=== PATIENT | female | born 1950 ===

== ENCOUNTER 2024-10-28 10:10 | Outpatient (AMB) | payer MEDICARE, OTHER, SELFPAY ==
--- OUTSIDE RECORDS SUMMARY | 2024-10-28 11:05 | XMS_ITS | Clinical Summary ---
Author Organization [facility] Address [address] [place] [address] Phone Care Team Providers Care Engineering Psychologist Name Role Phone Kimmy Cummins DO Primary Car e Provider Allergies Active Allergy Reactions Criticality Noted Date Comments Erythromycin 01/13/2023 Medications amLODIPine (NORVASC) 2.5 MG tablet Take 1 tablet by mouth every morning. 10/28/2022 Active levothyroxine (SYNTHROID,LEVOT HROID) 25 MCG tablet Take 1 tablet by mouth daily. 11/11/2022 Active triamcinolone acetonide 0.1 % cream as needed. 10/17/2022 Active ezetimibe-simvas tatin (VYTORIN) 10-20 mg per tablet Take 1 tablet by mouth daily. 08/13/2021 Active Active Problems Problem Noted Date Diagnosed Date Hyperlipidemia 01/13/2023 01/13/2023 Hypothyroidism 01/13/2023 01/13/2023 Assessment & Plan (01/04/2024 5:15 PM EDT): Euthyroid on recent labs. Osteoporosis 01/13/2023 01/13/2023 Essential hypertension Age-related osteoporosis wit hout current pathological fracture Assessment & Plan (01/04/2024 5:17 PM EDT): 73 y.o. woman w/ osteoporosis w/ significantly low t-score/z-score in spine. She did have an early menopause w/o HRT. Getting in reasonable calcium given likely PHPT. Will call to see if bone density was repeated Assessment & Plan (01/13/2023 12:53 PM EDT): 72 y.o. woman w/ osteoporosis w/ significantly low t-score/z-score in spine. She did have an early menopause w/o HRT. Reviewed normal bone physiology across the lifespan. Reviewed role of adequate calcium, vitamin D, weight-bearing exercise & avoidance of falls along with pharmacologic rx. Provided with written literature from [employer]. Will repeat bone density in late February/March. Will obtain records & repeat blood work. Will address potential pharmacologic rx at follow up. Hypercalcemia Assessment & Plan (01/04/2024 5:25 PM EDT): Mildly high calcium with high/high normal (non-suppressed PTH), presumably due to primary hyperparathyroidism. Has been uninterested in completing work up with 24 hr urine or pursuing rx. Reviewed normal parathyroid hormone physiology. Reviewed ddx & evaluation. Reviewed rx options, including monitoring, surgery or cinacalcet if calcium significantly high & pt unable/unwilling to have surgery. Discussed indications for surgery. Her calcium is not in a range which would require surgery (although certainly her bone density is). Discussed that typically this is a stable condition (with some fluctuation in calcium levels related to hydration/technical issues w/ lab, etc) but can be progressive with a persistent increase in calcium over time. She is getting reasonable, does not sound like excessive intake of calcium. I have advised she hold the vitamin D as should be getting 1000 units in MVI. Would keep well hydrated & would monitor. Will continue to monitor with labs with PCP. Would include calcium, albumin & 25 vitamin D with next labs. Assessment & Plan (01/13/2023 12:55 PM EDT): 72 y.o. woman with high calcium, high PTH, presumably due to primary hyperparathyroidism. Reviewed normal parathyroid hormone physiology. Reviewed ddx & evaluation. Reviewed rx options, including monitoring or surgery with indications for surgery.Would favor she do a 24 hr urine to confirm the diagnosis of PHPT & determine if there are additional indications for surgery (other than bone density). She is reluctant to consider surgery or even to do a 24 hr urine test. Would prefer to repeat labs in short term. Encounters Date Type Department Care Team Description 09/11/2024 Telephone Severino Sterling [facility] [address] [place] [address] [place] [phone] Jie Villegas MA Labs from Last 3 Months Social History Tobacco Use Types Packs/Day Years Used Date Smoking Tobacco: Never Smokeless Tobacco: Never Tobacco Cessation:Counseling Given: Not Answered Alcohol Use Standard Drinks/Week Comments Not Currently 0 (1 standard drink = 0.6 oz pur e alcohol) Education Answer Date Recorded Are you interested in more education? Not on kemar e 08/05/2022 Are you concerned about learning? Not on file 08/05/2022 No 08/05/2022 No 08/05/2022 Digital Access Answer Date Recorded No 08/05/2022 No 08/05/2022 Reliable internet access at home? Not on file 08/05/2022 Device with a working camera? Not on file Comments Unknown Sex and Gender Information Value Date Recorded Sex Assigned at Not on file Legal Sex Female 1:54 PM EDT Gender Identity Not on file Sexual Orientation Not on file Last Filed Vital Signs Vital Sign Reading Time Taken Comments Blood Pressure 116/60 01/04/2024 11:12 AM EDT Pulse 80 01/04/2024 11:12 AM EDT Temperature - - Respiratory Rate - - Oxygen Saturation 93% 01/04/2024 11:12 AM EDT Inhaled Oxygen Concentration - - Weight 65.3 kg (144 lb) 01/04/2024 11:12 AM EDT Height 164.8 cm (5' 4.88 ) 01/04/2024 11:12 AM E DT Body Mass Index 24.05 01/04/2024 11:12 AM EDT Plan of Treatment Upcoming Encounters Date Type Department Care Team (Late st Contact Info) Description 01/03/2025 11:20 AM EDT Office Visit [facility] [address] [place] [address] [place] [address] Jadyn Haskins MD [address] [place] [phone] Health Maintenance Due Date Last Done Comments Adult Td,Tdap Booster 1950 LIPID PANEL 1950 DEPRESSION SCREENING 1960 HEPATITIS C SCREENING 1966 SMOKING STATUS SCREENING (On ce After 26 Yrs) 1974 COLOGUARD 1993 COLONOSCOPY 1993 COLORECTAL CANCER SCREENING 1993 FIT TEST 1993 FOBT 1993 SIGMOIDOSCOPY 1993 VIRTUAL COLONOSCOPY 1993 PNEUMOCOCCAL VACCINES (50+ y ears) (1 of 1 - PCV) 1998 ZOSTER VACCINES (1 of 2) 1998 RSV VACCINE (1 - 1-dose 75+ series) 10/27/2023 COVID-19 VACCINE ( - 2023-2 5 season) 2023 BLOOD PRESSURE 07/04/2024 01/04/2024 TSH LEVEL 11/29/2024 11/30/2023 OSTEOPOROSIS SCREENING INITI AL (ONE-TIME) Completed 01/13/2023 HEPATITIS A VACCINES Aged Out No long er eligible based on patient's age to complete this topic HIB VACCINES Aged Out No longer eligi ble based on patient's age to complete this topic MENINGOCOCCAL VACCINES (ACWY) Aged Out No longer eligible based on patient's age to complete this topic MENINGOCOCCAL VACCINES (B) Aged Out N o longer eligible based on patient's age to complete this topic Medical Devices Not on file Procedures Procedure Name Priority Date/Time Associated Diagnosis Comments TSH Routine 11/30/2023 11:40 AM EDT BD DXA MONITORING Routine 01/13/2023 1:22 PM EDT Hyperparathyroidism, unspecified Age-related osteoporosis without current pathological fracture from Last 3 Months or Most Recently Relevant to Health Maintenance Results * TSH (11/30/2023 11:40 AM EDT) us Historical Provider LAB BLOOD ORDERABLES Yolie l Result from Last 3 Months or Most Recently Relevant to Health Maintenance Insurance MEDICARE PART A & B MEDICARE SUPPLEMENT MEDICARE PART A & B MEDICARE SUPPLEMENT MEDICARE PART A & B Member Subscriber Plan / Payer (Ef fective 2013-Present) Name:Eve Hickman Member ID:[id number] Relation to Subscriber:Self Name:Eve Hickman Subscriber ID:[id number] Payer ID:[id number] Group ID:Not on file Type:Medicare Address: [facility] [facility] [address] MEDICARE SUPPLEMENT MEDICARE PART A & B MEDICARE SUPPLEMENT MEDICARE PART A & B MEDICARE SUPPLEMENT MEDICARE PART A & B [facility] MEDICARE SUPPLEMENT Care Teams Engineering Psychologist Relationship Specialty Start Date End Date Kimmy Cummins DO PCP - General Internal Medicine 01/13/23 Additional Source Comments The information contained in this document represents components of the legal health record. It is not the complete legal health record.[facility]
== END 2024-10-28 10:18 | disposition home or self-care (01) ==
LOC: HO.HMGAL 10:10
PROVIDERS: Visit Provider Registered Nurse Emergency
DX: J30.89 Other allergic rhinitis (principal)
CPT/HCPCS: 95117; 95165

== ENCOUNTER 2024-11-25 09:32 | Outpatient (AMB) | payer MEDICARE, OTHER, SELFPAY ==
--- OUTSIDE RECORDS SUMMARY | 2024-11-25 11:29 | XMS_ITS | Clinical Summary ---
Author Organization [facility] Address [address] [facility] [address] [place] [address] Phone Care Team Providers Care Song Lyricist Name Role Phone Kimmy Cummins DO Primary [...] Department Care Team Description 09/11/2024 Telephone [facility] [address] [place] [address] [place] [phone] Jie Villegas MA Labs from Last 3 [...] 11:20 AM EDT Office Visit [facility] [address] [place] [address] [place] [address] Jadyn Haskins MD [address] [place] [email or web address] Health Maintenance Due Date Last Done Comments Adult Td,Tdap Booster 1948 LIPID PANEL 1948 DEPRESSION SCREENING 1960 HEPATITIS C SCREENING 1966 SMOKING STATUS SCREENING (On ce After 26 Yrs) 1974 PNEUMOCOCCAL VACCINES (50+ y ears) (1 of 1 - PCV) 1998 ZOSTER VACCINES (1 of 2) 1998 RSV VACCINE (1 - 1-dose 75+ series) 10/27/2023 BLOOD PRESSURE 07/04/2024 01/04/2024 INFLUENZA VACCINE (#1) 2024 COVID-19 VACCINE (1 - 2023-2 5 season) 2024 TSH LEVEL 11/29/2024 11/30/2023 OSTEOPOROSIS SCREENING INITI [...] Results * TSH (11/30/2023 11:40 AM EDT) Historical Provider LAB BLOOD ORDERABLES Yolie l Result from Last 3 Months or Most Recently Relevant to Health Maintenance Insurance MEDICARE PART A & B MEDICARE SUPPLEMENT MEDICARE PART A & B MEDICARE SUPPLEMENT MEDICARE PART A & B MEDICARE SUPPLEMENT MEDICARE PART A & B MEDICARE SUPPLEMENT MEDICARE PART A & B MEDICARE SUPPLEMENT MEDICARE PART A & B MEDICARE SUPPLEMENT Care Teams Song Lyricist Relationship Specialty Start Date End Date Kimmy Cummins DO PCP - General Internal Medicine 01/13/23 Additional Source Comments The information contained in this document represents components of the legal health record. It is not the complete legal health record.[facility]
--- OUTSIDE RECORDS SUMMARY | 2024-11-25 11:29 | XMS_ITS | Clinical Summary ---
Author Organization [facility] [address] [facility] Address [address] [place] [address] Phone Care Team Providers Care Senior Director Marketing Name Role Phone AbiodunkimberlyjeanKimmy Primary Care Pro vider Encounters Date Type Department Care Team Description 10/29/2024 Telephone Gastroenterology - [address] [facility] 299 [facility] [address] [place] [phone] Marjorie Ojeda MD from Last 3 Months Social History Tobacco Use Types Packs/Day Years Used Date Smoking Tobacco: Never Assessed Comments Unknown Sex and Gender Information Value Date Recorded Sex Assigned at Not on file Legal Sex Female 10:51 PM EST Gender Identity Not on file Sexual Orientation Not on file Plan of Treatment Upcoming Encounters Date Type Department Care Team (Late st Contact Info) Description 02/11/2025 2:20 PM EST Consult Gastroenterology - [place] [address] [facility] [address] [place] [phone] Carmel Cason PA 175 [facility] [address] [place] [address] Health Maintenance Due Date Last Done Comments DTaP,Tdap,and Td Vaccines (1 - Tdap) 10/27/1969 Pneumococcal Vaccine: 50+ Ye ars (1 of 1 - PCV) 1998 Zoster Vaccines (1 of 2) 1998 RSV Immunization Adult Patie nts (1 - 1-dose 75+ series) 10/27/2023 Depression Screening 03/13/2024 Falls Risk Assessment 10/29/2024 Hepatitis C Screening 10/29/2024 Medicare Annual Wellness Visit 10/29/2024 Osteoporosis Screening (Bone Density Screening) 10/29/2024 Social Influencers of Health Screening 10/29/2024 COVID-19 Vaccine ( - 2023-2 5 season) 2024 Influenza Vaccine (#1) 2024 HIB Vaccines Aged Out No longer eligi ble based on patient's age to complete this topic HPV Vaccines Aged Out No longer eligi ble based on patient's age to complete this topic Hepatitis A Vaccines Aged Out No long er eligible based on patient's age to complete this topic Hepatitis B Vaccines Aged Out No long er eligible based on patient's age to complete this topic IPV Vaccines Aged Out No longer eligi ble based on patient's age to complete this topic MMR Vaccines Aged Out No longer eligi ble based on patient's age to complete this topic Meningococcal ACWY Vaccine Aged Out N o longer eligible based on patient's age to complete this topic Meningococcal B Vaccine Aged Out No l onger eligible based on patient's age to complete this topic RSV Immunization Patients Un diomedes 20 months Aged Out No longer eligible b ased on patient's age to complete this topic Varicella Vaccines Aged Out No longer eligible based on patient's age to complete this topic Insurance MEDICARE [facility] Care Teams Senior Director Marketing Relationship Specialty Start Date End Date Kimmy Cummins DO [facility] [address] [place] [phone] PCP - General Internal Medicine 10/29/24
== END 2024-11-25 10:00 | disposition home or self-care (01) ==
LOC: HO.HMGAL 09:32
PROVIDERS: Visit Provider Registered Nurse Emergency
DX: J30.89 Other allergic rhinitis (principal)
CPT/HCPCS: 95117; 95165

== ENCOUNTER 2024-12-25 09:08 | Outpatient (AMB) | payer MEDICARE, OTHER, SELFPAY ==
--- OUTSIDE RECORDS SUMMARY | 2024-07-29 09:41 | XMS_ITS ---
Author Organization [facility] Address [address] [place], [place] [id number] Care Team Providers Care V Belt Skiver Name Role Phone AWA GIL Primary Care Provide r [phone] REASON FOR VISIT AWV Cancelled Encounters Encounter Location Date Provider Diagnosis [facility] [address] [place] [address] 07/29/2024 AWA GIL PLAN OF TREATMENT Next Appt Details Provider Name:AWA POST, 05/05/2025 10:00:00 AM, [address] [place], [address],
--- OUTSIDE RECORDS SUMMARY | 2024-08-08 05:30 | XMS_ITS ---
Author Organization [facility] Address [address] [place], [place] [id number] Care Team Providers Care Meat Soaker Name Role Phone AWA GIL Primary Care Provide r [phone] [place], NURSING [facility] [phone] REASON FOR VISIT N/39/AWV Encounters Encounter Location Date Provider Diagnosis [address] [address] 08/08/2024 NURSING [place] PLAN OF TREATMENT Next Appt Details Provider Name:AWA POST, 05/05/2025 10:00:00 AM, [address] [place], [address],
--- OUTSIDE RECORDS SUMMARY | 2024-08-08 06:00 | XMS_ITS ---
Author Organization [facility] Address [address] [place], [place] [phone] Care Team Providers Care Discharge Planner Name Role Phone AWA GIL Primary Care Provide r [phone] REASON FOR VISIT 39/1 yr follow up (AWV w/nursing 1st) Encounters Encounter Location Date Provider Diagnosis [facility] [address] [place] [address] 08/08/2024 AWA GIL PLAN OF TREATMENT Next Appt Details Provider Name:AWA POST, 05/05/2025 10:00:00 AM, [address] [place], [address],
--- OUTSIDE RECORDS SUMMARY | 2024-09-27 06:58 | XMS_ITS ---
Author Organization [facility] Address [address] [place], [place] [id number] Care Team Providers Care Bar Hostess Name Role Phone AWA GIL Primary Care Provide r [phone] REASON FOR VISIT meclizine MEDICATIONS Medication SIG (Take, Route, Fr equency, Duration) Notes Start Date End Date Status Meclizine HCl 25 MG 1 tablet as needed f or vertigo Orally daily PRN for 30 days Act michelle Encounters Encounter Location Date Provider Diagnosis [address] [address] 09/27/2024 AWA GIL PLAN OF TREATMENT Medication Medication Name Sig Start Date Stop Date Notes Meclizine HCl 25 MG 1 tablet as needed f or vertigo Orally daily PRN for 30 days Next Appt Details Provider Name:AWA POST, 05/05/2025 10:00:00 AM, [address] [place] [address], [phone],
--- OUTSIDE RECORDS SUMMARY | 2024-11-01 05:30 | XMS_ITS ---
Author Organization [facility] Address [address], [place] [id number] Care Team Providers Care Qa Consultant Name Role Phone AWA GIL Primary Care Provide r [phone] ALLERGIES Allergen (clinical drug ingredient) Drug/Non Drug Allergy documented on EMR Reaction Allergy Type Onset Date Status erythromycin Erythromycin Unknown Drug Allergy A ctive REASON FOR REFERRAL Reason (faxed 11/03/24) ? of median arcuate ligament on CT/coronary Diagnosis 1 Abnormal abdominal C T scan (R93.5) Referral Organization [facility] Referring Provider First Name AWA Referring Provider Last Name RENEE ROWE Referring Provider Speciality Internal M edicine Referred Provider JW PEREZ Referred Provider Specialty Vascular Sahil mary ellen General Notes Neeta GRUBER [place] 10/12 12:26:01 PM > faxed to Dr Perez's office, f: [phone] Referral Priority Routine REASON FOR VISIT 39/ AVW MEDICATIONS Medication SIG (Take, Route, Frequency, Duration) Notes Start Date End Date Status Advil 200 MG 1 tablet with food or milk as needed Orally only w bad REARDON Active Tylenol 8 Hour 650 MG 2 tablets as neede d Orally every 8 hrs PRN Active Meclizine HCl 25 MG 1 tablet as needed for vertigo Orally daily PRN for 30 days Active traZODone HCl 50 MG 1 tablet at bedtime as needed Orally Once a day for 30 days Active Levothyroxine Sodium 25 MCG TAKE 1 TABLET BY MOUTH EVERY DAY IN THE MORNING ON EMPTY STOMACH FOR 90 DAYS for 90 needs ov and labs for refills Active amLODIPine Besylate 2.5 MG 1 tablet Orally Once a day at night for 90 days Active Ezetimibe-Simvastatin 10-20 MG TAKE 1 TABLET BY MOUTH EVERY DAY for 90 Active SOCIAL HISTORY Tobacco Use: Social History Observation Description Date Details (start date - stop date) Never Smoker NA - NA Sex Assigned At : Social History Observation Description Sex Assigned At Unknown Smoking Question Answer Notes Are you a: never smoker Alcohol Screen Question Answer Notes Did you have a drink containing alcohol in the p ast year? No Points 0 Interpretation Negative Section Notes: Last Pap: Dr. Moreno - ?2019- normal Last Mammo:2019 - normal - [address] Last Colonscopy: 2020- normal - 5y plan - [facility] PROBLEMS Problem Type ICD Code Onset Dates Problem Status W/U Status Risk SNOMED Code Notes Problem Vaginal atrophy (N95.2) Active confirmed 838958872 VITAL SIGNS Height 63.5 in 11/01/2024 Weight 141 lbs 11/01/2024 Blood pressure systolic 137 mm Hg 11/02/19 25 Blood pressure diastolic 76 mm Hg 025 BMI 24.58 kg/m2 11/01/2024 Encounters Encounter Location Date Provider Diagnosis [facility] [address] [place] [address] 5 AWA GIL Hyperparathyroidism E21.3 ; Hypothyroidism, unspecified type E03.9 ; Primary hypertension I10 ; Insomnia, unspecified type G47.00 ; Microhematuria R31.29 ; MESSER (dyspnea on exertion) R06.09 ; Abnormal abdominal CT scan R93.5 ; Vaginal atrophy N95.2 ; Family history of colon cancer Z80.0 ; History of vertigo Z87.898 ; High cholesterol E78.00 and Medicare annual wellness visit, subsequent Z00.00 ASSESSMENTS Encounter Date Diagnosis Assessment Notes Treatment Notes Treatment Clinical Notes Section Notes 11/01/2024 Hyperparathyroidism (ICD-10 - E21.3) Will continue to monitor labs as per HPI. 11/01/2024 Hypothyroidism, unspecified type (ICD-10 - E03.9) TSH is good on current medication regimen. Taking meds correctly. Will continue to monitor TSH. 11/01/2024 Primary hypertension (ICD-10 - I10) Tolerating current regimen well and will continue. 11/01/2024 Insomnia, unspecifie d type (ICD-10 - G47.00) Finds trazodone to be helpful although does not completely resolve her symptoms. Will continue. Is tolerating without any side effects. 11/01/2024 Microhematuria (ICD- 10 - R31.29) had been ref to uro but declined appt wanted to fu w/ education director for vaginal atrophy first Will continue to monitor UA. 11/01/2024 MESSER (dyspnea on exertion) (ICD-10 - R06.09) [facility] card [facility] ct was ok for cardiac disease no need for fu w/ cards 11/01/2024 Abnormal abdominal C T scan (ICD-10 - R93.5) On her recent coronary CT incidentally noted in the upper abdomen to have the following findings: The origin of the celiac artery small and tortuous. Distal to this there is dilatation of the celiac artery. 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 Does not have any of the typical symptoms. Suspect this may be an over read have referred to vascular for evaluation and patient is aware. 11/01/2024 Vaginal atrophy (ICD-10 - N95.2) Continue follow-up and treatment as directed by MOTEL OPERATOR. 11/01/2024 Family history of colon cancer (ICD-10 - Z80.0) Up-to-date with screening and will follow-up with GI as directed 11/01/2024 History of vertigo (ICD-10 - Z87.898) if recurs or lasts more than 2 days will snd to vestibular rehabPatient is aware and agreeable. 11/01/2024 High cholesterol (ICD-10 - E78.00) Continue current medication regimen. Lipid profile is good. Continue meds and heart healthy diet and will monitor fasting lipids. 11/01/2024 Medicare annual wellness visit, subsequent (ICD-10 - Z00.00) 11/01/2024 Other Health Risk Assessment reviewed with patient and scanned into chart. PLAN OF TREATMENT Medication Medication Name Sig Start Date Stop Date Notes Meclizine HCl 25 MG 1 tablet as needed f or vertigo Orally daily PRN for 30 days traZODone HCl 50 MG 1 tablet at bedtime as needed Orally Once a day for 30 days Treatment Notes Assessment Notes Hyperparathyroidism Will continue to mon itor labs as per HPI. Hypothyroidism, unspecified type TSH is good on current medication regimen. Taking meds correctly. Will continue to monitor TSH. Primary hypertension Tolerating current regimen well and will continue. Insomnia, unspecified type Finds trazodo ne to be helpful although does not completely resolve her symptoms. Will continue. Is tolerating without any side effects. Microhematuria had been ref to uro but declined appt wanted to fu w/ education director for vaginal atrophy first Will continue to monitor UA. MESSER (dyspnea on exertion) had been ref t [facility] card coronary ct was ok for cardiac disease no need for fu w/ cards Abnormal abdominal CT scan On her recent coronary CT incidentally noted in the upper abdomen to have the following findings: The origin of the celiac artery small and tortuous. Distal to this there is dilatation of the celiac artery. 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 Does not have any of the typical symptoms. Suspect this may be an over read have referred to vascular for evaluation and patient is aware. Vaginal atrophy Continue follow-up a nd treatment as directed by MOTEL OPERATOR. Family history of colon cancer Up-to-sd e with screening and will follow-up with GI as directed History of vertigo if recurs or lasts m ore than 2 days will snd to vestibular rehabPatient is aware and agreeable. High cholesterol Continue current med ication regimen. Lipid profile is good. Continue meds and heart healthy diet and will monitor fasting lipids. Future Test Test Name Order Date Urinalysis, Complete w/ME-[id number] 025 TSH-[id number] 02/13/2025 Calcium, Ionized, Serum-[id number] 5 PTH, Intact-[id number] 02/13/2025 Hepatic Function Panel [id number] LP+Non-HDL Cholesterol-[id number] 02/13/2025 BMP8+eGFR-[id number] 02/13/2025 Referrals Referral Date Details (faxed 11/03/24) ? of median arcuate ligament on CT/coronary , JW PEREZ Next Appt Details Follow Up: 6 Months w/ labs, Reason: Provider Name:AWA POST, 05/05/2025 10:00:00 AM, [address] [place], [address], Progress Notes * Examination Category Sub-Category Detail Notes Category Not es General Examination see abov e History and Physical Notes * HPI (History of Present Illness) Category Sub-Category Detail Notes Category Not es General Pt Is here today for a follow-up visit and awv . here with her Following is copied/reviewed/edited from previous: -Medical history significant for elevated cholesterol, low vitamin D, high blood pressure, history of migraines, osteoporosis, 11/2023 apc prob visit For racing heart, shortness of breath. Had EKG in office, labs ordered, nuclear stress test was ordered and she was referred to cardiology for evaluation. had appt w/ Dr. [facility] , She did have Appointment with them in July of this year (2024). Prior to visit her nuclear stress test have been equivocal. They recommended evaluation of coronary CT scan if unremarkable then would not need further follow-up with cardiology. Coronary CT scan was done in August 2024. No evidence of hemodynamically significant coronary disease. has difficulty fallng and staying asleep this has been an issue for many years. no anxiety or depression -for her history of headaches has seen neuro at [facility] for second opinion. Currently gets chronic tension headaches with occasional migraines. When she saw them for follow-up on 08/2021 she had been having on average 2 of the really bad migraines monthly. They have given her steroids which she did find to be helpful. Had an awful time breaking out of a pattern of headaches until she was prescribed a medrol dose pack which cleared them up for months. Hadtryed various meds in past including amitriptyline, butalpital, tylenol, asa etc. told to have sleep study but refuses but wouldnt wear the mask. has refused the botox injections they offered due to potential SE she read about. prior to severe migraines gets freq BMS. They felt that she has too many cardiac risk factors to allow for triptan therapy. They had discussed low-dose Topamax 25 mg nightly however she declined a prophylactic medication per patient. -she reports that headaches have been better w/ improved bp control -had past hosp at [facility] 08/14/2021 for covid and syncope. They had also noted a mild systolic murmur and recommended she have outpatient evaluation for this with echocardiogram when she followed with her PCP. -on echo she was noted to have tricuspid regur and mild ot mod pulm vavle regurg -has meclizine at home for occ vertigo tells me this is infreq ent dr isaac , retired , now getting allergy shots at [facility] but they're trying to get an ent doctor there dr cm education director retired. still fu at the practice for atrophic vaginitis . -Follows with Dr Wang. gets injections for shoulders prn. Left shoulder partial rotator cuff tear. 01/14/22 had surgery for rotator cuff tear. -she goes for b/l knee injections at [facility] prn Colonoscopy (dbl endoscopy)-Dr Ojeda 01/2020-5 year rpt 01/2016 Oqzmov32 12/25 [facility] seen by azeem lopez for osteoporosos and elevated calcium and parathyroid hormone. They did recommend further evaluation for the hyperparathyroidism as this may be related to her osteoporosis and need for surgical excision of the parathyroids however she had wanted to put this off and cont to monitor labs had prev had micro hematuria. she denies h/o kidney stones has had micro hematuria on labs.had declined ref to urology for now recent labs reviewed w/ patient today : Your recent labs show: Normal urine test, Cholesterol panel is good Thyroid function is good, Normal: Fasting glucose, electrolytes, kidney function, liver function Calcium is slightly elevated above normal as previous (we had discussed you following up with endocrinology, Dr. Haskins for this. ) ROS GENERAL: No malaise, significant weight loss or fever HEENT: No changes in vision or hearing. No sore throat. No neck pain. No lumps or masses noted in neck. RESPIRATORY: No cough, wheezing or shortness of breath CARDIOVASCULAR: No chest pain, leg swelling or palpitations GI: No abdominal discomfort, blood in stools or black stools : No incontinence. No dysuria. No gross hematuria. No nocturia. MUSCULOSKELETAL: see hpi SKIN: No lesions, rash or itching PSYCH: No mood disorder or recent psychosocial stressors. see hpi ENDOCRINE: No cold or heat intolerance, polyuria, polydipsia or goiter. HEME/LYMPH: No easy bruising or bleeding. No lymph node enlargement or tenderness. NEURO: No persistent headache, syncope, seizures, weakness or numbness PE APPEARANCE: Alert and in no acute distress HEENT: NCAT, EOMI, nl conjunctiva. external ears normal. TMs nl b/l , no sinus tenderness, Neck is supple. No palpable lymphadenopathy. No thyromegaly. MMM. HEART: RRR with normal S1 and S2 LUNG: clear to auscultation ABDOMEN: Bowel sounds normoactive, soft, non-tender, nondistended, no palp masses BACK: No pain to palpation , no midline tenderness EXTREMITIES: Extremities warm and without edema NEURO: Awake, alert and oriented x 3 , gait normal, 5/5 strength prox and distal x 4 SKIN: Skin color, texture, turgor normal. Advanced directives Resuscitation status The following routine items were reviewed during the patient's annual well visit: Screening for tobacco use (tobacco control) Screening for alcohol abuse/misuse (Audit C) PHQ2 and PHQ9 if applicable MOLST Form given Fall Risk Mini [facility] Healthy care proxy (see Medical History) Healthcare Proxy See Medical history for emergency contact and or HCP Depression Screening PHQ-9 Little inte rest or pleasure in doing things: Not at all Feeling down,depressed or hopeless: Not at all Trouble falling or staying a sleep, or sleeping too much: More than half the days Feeling tired or having little energy: N ot at all Poor appetite or overeating: Not at all Feeling bad about yourself o r that you are a failure or have let yourself or your family down: Not at all Trouble concentrating on thi ngs, such as reading the newspaper or watching television: Not at all Moving or speaking so slowly that other people could have notice. Or the opposite of being so fidgety or restless that you have been moving around a lost more that usual: Not at all Thoughts that you would be b murtaza off , or of hurting yourself in some way: Not at all Total Score: 2 Interpretation: Minimal Depression Consultation Request Notes Referral Date Referring Provider Referred Provider Not ansuha 11/01/2024 AWA GIL MARC (faxed 11/03/24) ? of median arcuate ligament on CT/coronary
--- OUTSIDE RECORDS SUMMARY | 2024-12-25 10:00 | XMS_ITS | Clinical Summary ---
Author Organization [facility] Address [address] [place] [address] Phone Care Team Providers Care Mannequin Coloring Artist Name Role Phone AbiodunkimberlyjeanKimmy Primary Care Pro vider Encounters Date Type Department Care Team Description 10/29/2024 Telephone Gastroenterology - [facility] 299 [facility] [address] [place] [phone] Marjorie Ojeda MD from Last 3 Months [...] 02/11/2025 2:20 PM EST Consult Gastroenterology - [place] [address] [facility] [address] [place] [phone] Carmel Cason PA 175 [facility] [address] [place] [address] Health Maintenance Due Date Last Done Comments [...] age to complete this topic Insurance MEDICARE [facility] Care Teams Mannequin Coloring Artist Relationship Specialty Start Date End Date Kimmy Cummins DO [facility] [address] [place] [phone] PCP - General Internal Medicine 10/29/24
--- OUTSIDE RECORDS SUMMARY | 2024-12-25 10:01 | XMS_ITS | Patient Health Record ---
Author Organization [facility] [employer] Address [address] [place], [place] [address] Care Team Providers Care Surgical Supervisor Name Role Phone AWA GIL Primary Care Provide r [phone] SELBY, [facility] [phone] ALLERGIES Allergen (clinical drug ingredient) Drug/Non Drug Allergy documented on EMR Reaction Allergy Type Onset Date Status erythromycin Erythromycin Unknown Drug Allergy A ctive REASON FOR REFERRAL Reason 10/23/24 w appt 5 ye ar colonoscopy and EGD z12.11 Referral Organization [facility] [employer] Referring Provider First Name AWA Referring Provider Last Name RENEE ROWE Referring Provider Speciality Internal M edicine Referred Provider VILMA FRAGA Referred Provider Specialty Gastroentero logjohann General Notes Pat GRUBER Call Ce nter 10/23/2024 09:10:31 AM >Pt asking for a colonoscopy and EGD to check for strictures, [facility], phone [phone], fax unknown, insurance (C), appt. will be booked after referral sent., Maria D GRUBER Admin 10/23/2024 01:35:18 PM > Faxed medical referral, last office note and most recent labs to [phone] (needs 5 year colonoscopy and EGD) Referral Priority Routine Reason (faxed 11/03/24) ? of median arcuate ligament on CT/coronary Diagnosis 1 Abnormal abdominal C T scan (R93.5) Referral Organization [facility] [employer] Referring Provider First Name AWA Referring Provider Last Name RENEE ROWE Referring Provider Speciality Internal M edicine Referred Provider JW THOMAS Referred Provider Specialty Vascular Sahil mary ellen General Notes Neeta GRUBER [place] 10/12 12:26:01 PM > faxed to Dr Thomas's office, f: [phone] Referral Priority Routine MEDICATIONS Medication SIG (Take, Route, Frequency, Duration) Notes Start Date End Date Status Levothyroxine Sodium 25 MCG TAKE 1 TAB B Y MOUTH EVERY DAY IN THE MORNING ON EMPTY STOMACH (*NEED OFFICE VISIT/LABS FOR REFILLS*) for 90 Active Advil 200 MG 1 tablet with food o r milk as needed Orally only w bad REARDON Active Tylenol 8 Hour 650 MG 2 tablets as neede d Orally every 8 hrs PRN Active Meclizine HCl 25 MG 1 tablet as needed f or vertigo Orally daily PRN for 30 days Active traZODone HCl 50 MG 1 tablet at bedtime as needed Orally Once a day for 30 days Active amLODIPine Besylate 2.5 MG TAKE 1 TABLET BY MOUTH EVERY DAY AT NIGHT for 90 Active Ezetimibe-Simvastatin 10-20 MG TAKE 1 TABLET BY MOUTH EVERY DAY for 90 Active IMMUNIZATIONS Vaccine Route Administration Date Status Comme nts [id number] IM Intramuscular 08/03/2023 Administered Pneumococcal, PPV 23 IM Intramuscular 01/12/2016 Administe red Pneumococcal Prevnar 13 IM Intramuscular 12/11/2014 Admini stered Pfizer COVID-19,mRNA, LNP-S, PF, 30mcg/0.3mL dose IM Intramuscular 12/06/2022 Administered Influenza, Fluzone HD 65+ IM Intramuscular 12/09/2020 Admi nistered Influenza, Fluarix Quad IM Intramuscular 12/04/2022 Admini stered SOCIAL HISTORY Tobacco Use: Social History Observation [...] Section Notes: Last Pap: Dr. Moreno - ?2018- normal Last Mammo:2018 - normal - [address] Last Colonscopy: 2020- normal - 5y plan - [facility] Last Pap: Dr. Moreno - ?2018- normal Last Mammo:2019 - normal - [address] Last Colonscopy: 2020- normal - 5y plan - [facility] Last Pap: Dr. Moreno - ?2019- normal Last Mammo:2019 - normal - [address] Last Colonscopy: 2020- normal - 5y plan - [facility] Last Pap: Dr. Moreno - ?2018- normal Last Mammo:2019 - normal - [address] Last Colonscopy: 2020- normal - 5y plan - [facility] Last Pap: Dr. Moreno - ?2018- normal Last Mammo:2019 - normal - [address] Last Colonscopy: 2020- normal - 5y plan - [facility] Last Pap: Dr. Moreno - ?2018- normal Last Mammo:2019 - normal - [address] Last Colonscopy: 2020- normal - 5y plan - [facility] Last Pap: Dr. Moreno - ?2018- normal Last Mammo:2018 - normal - [address] Last Colonscopy: 2020- normal - 5y plan - [facility] Last Pap: Dr. Moreno - ?2018- normal Last Mammo:2019 - normal - [address] Last Colonscopy: 2020- normal - 5y plan - [facility] Last Pap: Dr. Moreno - ?2018- normal Last Mammo:2019 - normal - [address] Last Colonscopy: 2020- normal - 5y plan - [facility] Last Pap: Dr. Moreno - ?2018- normal Last Mammo:2018 - normal - [address] Last Colonscopy: 2020- normal - 5y plan - [facility] PROBLEMS Problem Type ICD Code Onset Dates Problem Status W/U Status Risk SNOMED Code Notes Problem Osteoporosis (M81.0) Active confirmed O steoporosis (85489306) Problem Hypercalcemia (E83.52) Active confirmed 81753619 Problem Other chronic pain (G89.29) Active confirmed 01135252 Problem Migraine without status migrainosus, not intractable, unspecified migraine type (G43.909) Active confirmed 82899062 Problem Macrocytosis (D75.89) Active confirmed 267176175 Problem Hyperparathyroidism (E21.3) Active confirmed 36597188 Problem Insomnia, unspecifie d type (G47.00) Active confirmed 193558784 Problem Serum calcium elevat ed (E83.52) Active confirmed 56214543 Problem Low vitamin D level (E55.9) Active confirmed Vitamin D deficiency (60778094) Problem Vaginal atrophy (N95.2) Active confirmed 741511672 Problem Primary hypertension (I10) Active confirmed 32226833 Problem Hypothyroidism, unspecified type (E03.9) Active confirmed 38231073 Problem Microhematuria (R31.29) Active confirmed 101226088 Problem High cholesterol (E78.00) Active confirmed 67437564 Problem Elevated lipids (E78.5) Active confirmed Elevated fasting lipid profile (250772269930) Problem Headache, unspecifie d (R51.9) Active confirmed 09547638 VITAL SIGNS Blood pressure diastolic 76 mm Hg 11/01/2024 Height 63.5 in 11/01/2024 Blood pressure systolic 137 mm Hg 11/01/2024 Weight 141 lbs 11/01/2024 BMI 24.58 kg/m2 11/01/2024 Encounters Encounter Location Date Provider Diagnosis [place] [id number] 4 AWA GIL [place] [phone] 4 NURSING SELBY BP check Z01.30 [place] [id number] 4 [place] [id number] 4 AWA GIL [place] [id number] 4 AWA GIL [place] [id number] 4 AWA GIL Hyperparathyroidism E21.3 ; High cholesterol E78.00 ; Osteoporosis M81.0 ; Primary hypertension I10 ; Hypothyroidism, unspecified type E03.9 ; Insomnia, unspecified type G47.00 ; Headache, unspecified R51.9 ; Microhematuria R31.29 ; Pain in left knee M25.562 and Pain in right knee M25.[address] [address] [address] [address] 5 [facility]WA [facility] [address] [place] [address] 5 [facility]WA [facility] [address] [place] [address] 5 AWA LAUREENKITBJORN [address] [address] 5 AWA ROS[address]AT[address] [place] [address] [address] [place] [address] 5 AWA [address] [address] 5 AWA R[address] [address] 5 AWA DESDANIASHEBAKATINABJORN Hyperparathyroidism E21.3 ; Hypothyroidism, unspecified type E03.9 [...] continue to monitor labs as per HPI. 03/11/2024 Hyperparathyroidism (ICD-10 - E21.3) fu w/ endocrine as planned 12/28/2023 BP check (ICD-10 - Z01.30) Pt states within the last month, bp readings at home are averaging about 120/70. She has missed 4 days of bp medication within this past month due to personal life. Bp taken at home daily, no adverse effects from current medication. Please see telephone encounter for providers collaboration. 03/11/2024 High cholesterol (ICD-10 - E78.00) cont current regimen and heart healthy diet and will monitor fasting lipids 11/01/2024 Hypothyroidism, unspecified type (ICD-10 - E03.9) TSH is good on current medication regimen. Taking meds correctly. Will continue to monitor TSH. 03/11/2024 Osteoporosis (ICD-10 - M81.0) cont fu and tx as planned w/ endo 11/01/2024 Primary hypertension (ICD-10 - I10) Tolerating current regimen well and will continue. 03/11/2024 Primary hypertension (ICD-10 - I10) cont current med regimen and low sodium diet and will monitor 11/01/2024 Insomnia, unspecifie d type (ICD-10 - G47.00) Finds trazodone to be helpful although does not completely resolve her symptoms. Will continue. Is tolerating without any side effects. 11/01/2024 Microhematuria (ICD- 10 - R31.29) had been ref to uro but declined appt wanted to fu w/ director of product development for vaginal atrophy first Will continue to monitor UA. 03/11/2024 Hypothyroidism, unspecified type (ICD-10 - E03.9) cont current dose of meds and will monitor tsh 11/01/2024 MESSER (dyspnea on exertion) (ICD-10 - R06.09) [facility] ref [facility] card [facility] ct was ok for cardiac disease no need for fu w/ cards 03/11/2024 Insomnia, unspecifie d type (ICD-10 - G47.00) has bouts of insomnia when can't fall asleep for a couple of weeks . has tried otc sleep agents includig melatonin w/o any improvement. tries to sleep 9 pm to 6 am. gets up to urinate 2-3 times/night. she hasnt slep straight thru in many years in distant past took lorazepam wasnt great. 11/01/2024 Abnormal abdominal C T scan (ICD-10 [...] vascular for evaluation and patient is aware. 03/11/2024 Headache, unspecifie d (ICD-10 - R51.9) has been doing well, no exacerbations 03/11/2024 Microhematuria (ICD- 10 - R31.29) will monitor rept labs and if persists will refer to urology 11/01/2024 Vaginal atrophy (ICD-10 - N95.2) Continue follow-up and treatment as directed by SENIOR PENSIONS ADMINISTRATOR. 03/11/2024 Pain in left knee (ICD-10 - M25.562) fu w/ neos for injections prn 11/01/2024 Family history of colon cancer (ICD-10 - Z80.0) Up-to-date with screening and will follow-up with GI as directed 03/11/2024 Pain in right knee (ICD-10 - M25.561) 11/01/2024 History of vertigo (ICD-10 - Z87.898) [...] reviewed with patient and scanned into chart. 12/28/2023 Other PLAN OF TREATMENT Future Test Test Name Order Date LIPID PANEL 06/03/2022 BASIC METABOLIC PANEL 06/03/2022 HEPATIC FUNCTION PANEL 06/03/2022 25OH VITAMIN D 06/03/2022 IONIZED CALCIUM 06/03/2022 PTH INTACT 06/03/2022 TSH 06/03/2022 URINALYSIS MICROSCOPIC ONLY 06/03/2022 LIPID PANEL 11/11/2022 BASIC METABOLIC PANEL 11/11/2022 HEPATIC FUNCTION PANEL 11/11/2022 25OH VITAMIN D 11/11/2022 CBC (COMPLETE BLOOD COUNT) WITH DIFF 03/2022 FOLIC ACID 11/11/2022 IONIZED CALCIUM 11/11/2022 PTH INTACT 11/11/2022 TSH 11/11/2022 URINALYSIS MICROSCOPIC ONLY 11/11/2022 VITAMIN B12 11/11/2022 Urinalysis, Complete w/ME-[id number] 025 TSH-[id number] 02/13/2025 Calcium, Ionized, Serum-697106 5 PTH, Intact-923772 02/13/2025 Hepatic Function Panel [id number] LP+Non-HDL Cholesterol-462894 02/13/2025 BMP8+eGFR-[id number] 02/13/2025 Next Appt Details Provider Name:AWA LUCAS SINCERE, 05/05/2025 10:00:00 AM, [address] [place], [address], Insurance Providers Payer Name Payer Address Payer Phone Subscriber Number Group Number Insured Name Patient Relationship to Insured Coverage Start Date Coverage End Date MEDICARE [employer] [address] [facility] [place] [address] [phone] [id number] SONY HURTADO Self - patient is the insured 4 [facility] MEDICARE SUPPLEMENT PR [address] [place] [phone] [id number] SONY HURTADO Self - patient is the insured 8 MEDICAL (GENERAL) HISTORY Medical History History ICD Code Allergies hyperlipidemia Headaches/Migraines Osteoarthritis Hypothyroidism Heart murmur osteoporosis - BMD breast & wellness 02/2021 - t-score spine -4.1, femoral neck -2.6, total hip -1.7 - no fracture high normal/mildly high calcium w/ high PTH vitamin D insufficiency Surgical History Surgery Date(Month/Year) Left shoulder rotator cuff surgery /bone spur 01/14/2022 Mole Removal Cataracts Hospitalization History Reason Date(Month/Year) Covid/high blood pressure 08/2021
--- OUTSIDE RECORDS SUMMARY | 2024-12-25 10:01 | XMS_ITS | Clinical Summary ---
Author Organization [facility] Address [address] [facility] [address] [place] [address] Phone Care Team Providers Care Manager Home Name Role Phone Kimmy Cummins DO Primary [...] prefer to repeat labs in short term. Social History Tobacco Use Types Packs/Day Years [...] 01/04/2024 11:12 AM EDT Plan of Treatment Health Maintenance Due Date Last Done Comments [...] VACCINE (#1) 2024 COVID-19 VACCINE (1 - 2024-2 6 season) 2024 TSH LEVEL 11/29/2024 11/30/2023 OSTEOPOROSIS [...] * TSH (11/30/2023 11:40 AM EDT) us [facility] Provider LAB BLOOD ORDERABLES Yolie l Result from Last 3 Months or Most Recently Relevant to Health Maintenance Insurance [place] [id number] [facility] MEDICARE SUPPLEMENT MEDICARE PART A & B Member Subscriber Plan / Payer (Ef fective 2013-Present) Name:Eve Hickman Member ID:[id number] Relation to Subscriber:Self Name:Eve Hickman Subscriber ID:[id number] Payer ID:[id number] Group ID:Not on file Type:Medicare Address: [employer] [address] MEDICARE SUPPLEMENT MEDICARE PART A & B Member Subscriber Plan / Payer (Ef fective 2013-Present) Name:Eve Hickman Member ID:[id number] Relation to Subscriber:Self Name:Vick Eve Subscriber ID:[id number] Payer ID:[id number] Group ID:Not on file Type:Medicare Address: [employer] [address] [place] [address] [place] [address] MEDICARE SUPPLEMENT MEDICARE PART A & B MEDICARE SUPPLEMENT MEDICARE PART A & B MEDICARE SUPPLEMENT MEDICARE PART A & B [facility] MEDICARE SUPPLEMENT Care Teams Manager Home Relationship Specialty Start Date End Date Kimmy Cummins DO PCP - General Internal Medicine 01/13/23 Additional Source Comments The information contained in this document represents components of the legal health record. It is not the complete legal health record.[facility]
== END 2024-12-25 09:09 | disposition home or self-care (01) ==
LOC: HO.HMGAL 09:08
PROVIDERS: PCP Internal Medicine; Visit Provider Registered Nurse Emergency
DX: J30.89 Other allergic rhinitis (principal)
CPT/HCPCS: 95117; 95165

== ENCOUNTER 2025-01-27 08:58 | Outpatient (AMB) | payer MEDICARE, OTHER, SELFPAY | END 2025-01-27 08:58 | disposition home or self-care (01) | LOC: HO.HMGAL 08:58 | PROVIDERS: PCP Internal Medicine; Visit Provider Registered Nurse Emergency | DX: J30.89 Other allergic rhinitis (principal) | CPT/HCPCS: 95117; 95165 ==

== ENCOUNTER 2025-03-03 08:52 | Outpatient (AMB) | payer MEDICARE, OTHER, SELFPAY ==
--- OUTSIDE RECORDS SUMMARY | 2023-12-05 05:20 | XMS_ITS ---
Author Organization [facility] Address [address] [place] [address] Care Team Providers Care Hanging Flags Decorator Name Role Phone AWA GIL Primary Care Provide r [phone] NIKKIE WILSON [phone] REASON FOR VISIT KP/39/Heart Racing Encounters Encounter Location Date Provider Diagnosis [address] [address] 12/05/2023 NIKKIE WILSON Plan Of Treatment Next Appt Details Provider Name:AWA POST, 05/05/2025 10:00:00 AM, [address] [place], [address], Progress Notes * MULUGETA HURTADOADOB:1950 (74 yo F)Acc No.[id number]:12/05/2023 Progress Notes Patient: SONY AVILEZ Provider: SHLOMO Collins :1950 A ge:73 Y S ex:Female Date:12/05/2023 Address:[address] [id number] Pcp:AWA HAYES Subjective: * Chief Complaints: * K P/39/Heart Racing * Electronic signature of SHLOMO MOLINA on 03/03/2025 at 09:30 AM EST Sign off status: Pending * Provider: SHLOMO Collins Date: 0 12/05/2023 Generated for Pedro house/Tiffanie/eTransmitting on: 1 05/04/2024 09:30 AM EST
--- OUTSIDE RECORDS SUMMARY | 2025-03-03 09:30 | XMS_ITS | Clinical Summary ---
Author Organization [address] Address [address] [place] [phone] Phone Care Team Providers Care Manager Purchasing Name Role Phone AbiodunKimmy pickard Primary Care Pro vider Allergies No known active allergies Medications levothyroxine (SYNTHROID, LEVOTHROID) 25 mcg tablet TAKE 1 TAB BY MOUTH EVERY DAY IN THE MORNING ON EMPTY STOMACH (*NEED OFFICE VISIT/LABS FOR REFILLS*) 11/05/2024 Active amLODIPine (NORVASC) 2.5 mg tablet Take 1 tablet (2.5 mg total) by mouth at bedtime. 11/05/2024 Active ezetimibe-simva statin (VYTORIN) 10-20 mg per tablet Take 1 tablet by mouth 1 (one) time each day. Active meclizine (ANTIVERT) 25 mg tablet TAKE 1 TABLET BY MOUTH EVERY DAY NEEDED FOR VERTIGO FOR 30 DAYS 11/01/2024 Active acetaminophen (Tylenol Arthritis Pain) 650 mg 8 hr tablet Take 2 tablets (1,300 mg total) by mouth. 07/23/2024 Active ibuprofen (ADVIL,MOTRIN) 100 mg/5 mL suspension 20 mL (400 mg total). Active Encounters Date Type Department Care Team Description 02/11/2025 2:20 PM EST Consult Gastroenterology - [address] [place] [phone] Carmel Cason PA Hiatal hernia with GERD and esophagitis (Primary Dx); History of esophageal stricture; Family history of colon cancer from Last 3 Months Social History Tobacco Use Types Packs/Day Years Used Date Smoking Tobacco: Never Assessed Comments Unknown Sex and Gender Information Value Date Recorded Sex Assigned at Not on file Legal Sex Female 10:51 PM EST Gender Identity Not on file Sexual Orientation Not on file Last Filed Vital Signs Vital Sign Reading Time Taken Comments Blood Pressure - - Pulse - - Temperature - - Respiratory Rate - - Oxygen Saturation - - Inhaled Oxygen Concentration - - Weight 66.6 kg (146 lb 12.8 oz) 02/11/2025 2:36 PM EST Height 162.6 cm (5' 4 ) 02/11/2025 2:36 PM EST Body Mass Index 25.2 02/11/2025 2:36 PM EST Plan of Treatment Health Maintenance Due Date Last Done Comments DTaP,Tdap,and Td Vaccines (1 - Tdap) 10/27/1967 Zoster Vaccines (1 of 2) 1998 RSV Immunization Adult Patients (1 - 1-dose 75+ series) 10/27/2023 Depression Screening 03/13/2024 Cholesterol Screening (Lipid Panel) 10/29/2024 Falls Risk Assessment 10/29/2024 Hepatitis C Screening 10/29/2024 Medicare Annual Wellness Visit 10/29/2024 Osteoporosis Screening (Bone Density Screening) 10/29/2024 Social Influencers of Health Screening 10/29/2024 COVID-19 Vaccine ( season) 2024 02/11/2024, 12/06/2022, 03/29/2022, Additional history exists Influenza Vaccine (#1) 2024 , 12/04/2022, 03/29/2022, Additional history exists Hypertension/CHF/CAD Annual BMP Blood Test 02/11/2025 Colorectal Cancer Screening: Colonoscopy Discontinued 04/09/2014, 04/09/2008, 04/03/2003, Additional history exists Pneumococcal Vaccine: 50+ Years Completed 08/03/2023 HIB Vaccines Aged Out No longer eligi [...] to complete this topic RSV Immunization Patients Under 20 months Aged Out No longer eligible based on patient's age to complete this topic Varicella Vaccines Aged Out No longer eligible based on patient's age to complete this topic Procedures Procedure Name Priority Date/Time Associated Diagnosis Comments COLONOSCOPY Routine 04/09/2014 1:57 PM EST from Last 3 Months or Most Recently Relevant to Health Maintenance Results * COLONOSCOPY (04/09/2014 1:57 PM EST) Anatomical Region Laterality Modality Endoscopy us Historical Provider GI~PROCEDURE ORDERABLES F inal Result from Last 3 Months or Most Recently Relevant to Health [place] [id number] MEDICARE [facility] Care Teams Manager Purchasing Relationship Specialty Start Date End Date Kimmy Cummins DO [address] [phone] PCP - General Internal Medicine 10/29/24
--- OUTSIDE RECORDS SUMMARY | 2025-03-03 09:30 | XMS_ITS | Clinical Summary ---
Author Organization [facility] Address [address] [facility] [address] [place] [address] Phone Care Team Providers Care Planning Consultant Name Role Phone Kimmy Cummins DO Primary [...] pharmacologic rx. Provided with written literature from [employer]. Will repeat bone density in late February/March. [...] you interested in more education? Not on ekmar e 08/05/2022 Are you concerned about learning? [...] Procedure Name Priority Date/Time Associated Diagnosis Comments THYROID STIMULATING HORMONE (TSH) Routine 11/30/2023 11:40 AM EDT BD DXA MONITORING Routine 01/13/2023 1:2 2 PM EDT Hyperparathyroidism, unspecified Age-related osteoporosis without current pathological fracture from Last 3 Months or Most Recently Relevant to Health Maintenance Results * TSH (11/30/2023 11:40 AM EDT) us Historical Provider LAB BLOOD BKR ORDERABLES Final Result from Last 3 Months or Most Recently Relevant to Health Maintenance Insurance MEDICARE PART A & B [facility] MEDICARE SUPPLEMENT MEDICARE PART A & B Member Subscriber Plan / Payer (Ef fective 2013-) Name:Vick Eve Member ID:[id number] Relation to Subscriber:Self Name:VickEve Subscriber ID:[id number] Payer ID:[id number] Group ID:Not on file Type:Medicare Address: [employer] [address] MEDICARE SUPPLEMENT MEDICARE PART A & B MEDICARE SUPPLEMENT MEDICARE PART A & B MEDICARE SUPPLEMENT MEDICARE PART A & B [id number] [place] [address] MEDICARE SUPPLEMENT MEDICARE PART A & B [facility] MEDICARE SUPPLEMENT Care Teams Planning Consultant Relationship Specialty Start Date End Date Kimmy Cummins DO [address] [place] [id number] PCP - General Internal Medicine 01/13/23 Additional Source Comments The information contained in this document represents components of the legal health record. It is not the complete legal health record.[facility]
--- OUTSIDE RECORDS SUMMARY | 2025-03-03 09:31 | XMS_ITS | Patient Health Record ---
Author Organization [facility] Address [address] [place] [address] Care Team Providers Care Primary Montessori Teacher Name Role Phone AWA GIL Primary Care Provide [phone] [place], NUR[facility] Unavailable [phone] Allergies Allergen (clinical drug ingredient) Drug/Non Drug Allergy documented on EMR Reaction Allergy Type Onset Date Status erythromycin Erythromycin Unknown Drug Allergy A ctive Reason For Referral Reason 10/23/24 w appt 5 ye ar colonoscopy and EGD z12.11 Referral Organization [facility] Referring Provider First Name AWA Referring Provider Last Name RENEE ROWE Referring Provider Speciality Internal M edicine Referred Provider VILMA FRAGA Referred Provider Specialty Gastroentero logy General Notes Pat GRUBER Call Ce nter 10/23/2024 09:10:31 AM >Pt asking for a colonoscopy and EGD to check for strictures, [address] [place] [address], phone [phone], fax unknown, insurance (C), appt. will be booked after referral sent., Maria D GRUBER Admin 10/23/2024 01:35:18 PM > Faxed medical referral, last office note and most recent labs to [phone] (needs 5 year colonoscopy and EGD) Referral Priority Routine Reason (faxed 11/03/24) ? of median arcuate ligament on CT/coronary Diagnosis 1 Abnormal abdominal C T scan (R93.5) Referral Organization [facility] Referring Provider First Name AWA Referring Provider Last Name RENEE ROWE Referring Provider Speciality Internal M edicine Referred Provider JW THOMAS Referred Provider Specialty Vascular Sahil mary ellen General Notes Neeta GRUBER [place] 10/12 12:26:01 PM > faxed to Dr Thomas's office, f: [phone] Referral Priority Routine Medications Medication SIG (Take, Route, Frequency, Duration) Notes Start Date End Date Status Levothyroxine Sodium 25 MCG Tablet TAKE 1 TAB BY MOUTH EVERY DAY IN THE MORNING ON EMPTY STOMACH (*NEED OFFICE VISIT/LABS FOR REFILLS*); Duration: 90 Active Advil 200 MG Tablet 1 tablet with food o r milk as needed Orally only w bad REARDON Active Tylenol 8 Hour 650 MG Tablet Extended Release 2 tablets as needed Orally every 8 hrs PRN Active Meclizine HCl 25 MG Tablet 1 tablet as n eeded for vertigo Orally daily PRN; Duration: 30 days Active traZODone HCl 50 MG Tablet 1 tablet at b edtime as needed Orally Once a day; Duration: 30 days Active amLODIPine Besylate 2.5 MG Tablet TAKE 1 TABLET BY MOUTH EVERY DAY AT NIGHT; Duration: 90 Active Ezetimibe-Simvastatin 10-20 MG Tablet TAKE 1 TABLET BY MOUTH EVERY DAY; Duration: 90 Active Immunizations Vaccine Route Administration Date Status Comme nts Influenza, Fluarix Quad IM Intramuscular 12/04/2022 Admini stered Influenza, Fluzone HD 65+ IM Intramuscular 12/09/2020 Admi nistered Pfizer COVID-19,mRNA, LNP-S, PF, 30mcg/0.3mL dose IM Intramuscular 12/06/2022 Administered Pneumococcal Prevnar 13 IM Intramuscular 12/11/2014 Admini stered Pneumococcal, PPV 23 IM Intramuscular 01/12/2016 Administe red [id number] IM Intramuscular 08/03/2023 Administered Social History Tobacco Use: Social History Observation Description Date Details (start date - stop date) Never Smoker NA - NA Social History Drug/Alcohol: Social Info Question Answer Notes Alcohol Screen Did you have a drink containing alcohol in the past year? 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 Moreno - [...] 2020- normal - 5y plan - [facility] Problems Problem Type SNOMED Code ICD Code Onset Dates Problem Status W/U Status Risk Notes Problem Osteoporosis (87599523) Osteoporosis (M81.0) Active confirmed Problem Hypercalcemia (68053558) Hypercalcemia (E83.52) Active confirmed Problem Chronic pain (52706537) Other chronic pain (G89.29) Active confirmed Problem Migraine (80790289) Migraine wit hout status migrainosus, not intractable, unspecified migraine type (G43.909) Active confirmed Problem Macrocytosis (72161573) Macrocytosis (D75.89) Active confirmed Problem Hyperparathyroidism (80720944) Hyperparathyroidism (E21.3) Active confirmed Problem Insomnia (181176765) Insomnia, unspecified type (G47.00) Active confirmed Problem Hypercalcemia (28277474) Serum calcium elevated (E83.52) Active confirmed Problem Vitamin D deficiency (49416519) Low vitamin D level (E55.9) Active confirmed Problem Atrophy of vagina (791522753) Vaginal atrophy (N95.2) Active confirmed Problem Primary hypertension (34995115) Primary hypertension (I10) Active confirmed Problem Hypothyroidism (94838731) Hypothyroidism, unspecified type (E03.9) Active confirmed Problem Microscopic hematuri a (115284536) Microhematuria (R31.29) Active confirmed Problem High cholesterol (60181904) High cholesterol (E78.00) Active confirmed Problem Elevated fasting lipid profile (482027490106) Elevated lipids (E78.5) Active confirmed Problem Headache (97031123) Headache, unspecified (R51.9) Active confirmed Vital Signs Blood pressure diastolic 76 mm Hg 11/01/2024 Height 63.5 in 11/01/2024 Blood pressure systolic 137 mm Hg 11/01/2024 Weight 141 lbs 11/01/2024 BMI 24.58 kg/m2 11/01/2024 Encounters Encounter Location Date Provider Diagnosis [address] [address] 5 AWA GIL Hyperparathyroidism E21.3 ; Hypothyroidism, unspecified type E03.9 ; Primary hypertension I10 ; Insomnia, unspecified type G47.00 ; Microhematuria R31.29 ; MESSER (dyspnea on exertion) R06.09 ; Abnormal abdominal CT scan R93.5 ; Vaginal atrophy N95.2 ; Family history of colon cancer Z80.0 ; History of vertigo Z87.898 ; High cholesterol E78.00 and Medicare annual wellness visit, subsequent Z00.[address] [address] 4 AWA KIRANACCO Hyperparathyroidism E21.3 ; High cholesterol E78.00 ; Osteoporosis M81.0 ; Primary hypertension I10 ; Hypothyroidism, unspecified type E03.9 ; Insomnia, unspecified type G47.00 ; Headache, unspecified R51.9 ; Microhematuria R31.29 ; Pain in left knee M25.562 and Pain in right knee M25.[address] [address] 5 AWA GARDUNOCOLASACCO [address] [address] 5 AWA AVELARAKCOLASACCO [address] [address] 5 AWACARMEN AVELARAKCOLASACCO [address] [address] 5 AWA GARDUNOCOLASACCO [address] [address] 5 AWA AVELARAKCOLASACCO [address] [address] 5 AWA GARDUNOCOLASACCO [address] [address] 5 AWA GIL Assessments Encounter Date Diagnosis (ICD Code) Assessment Notes Treatment Notes Treatment Clinical Notes Section Notes 11/01/2024 Hyperparathyroidism (ICD-10 - E21.3) Will continue to monitor labs as per HPI. 03/11/2024 Hyperparathyroidism (ICD-10 - E21.3) fu w/ endocrine as planned 03/11/2024 High cholesterol (ICD-10 - E78.00) cont [...] but declined appt wanted to fu w/ media strategist for vaginal atrophy first Will continue to monitor UA. 03/11/2024 Hypothyroidism, unspecified type (ICD-10 - E03.9) cont current dose of meds and will monitor tsh 03/11/2024 Insomnia, unspecifie d type (ICD-10 - G47.00) has bouts of insomnia when can't fall asleep for a couple of weeks . has tried otc sleep agents includig melatonin w/o any improvement. tries to sleep 9 pm to 6 am. gets up to urinate 2-3 times/night. she hasnt slep straight thru in many years in distant past took lorazepam wasnt great. 11/01/2024 MESSER (dyspnea on exertion) (ICD-10 - [...] Continue follow-up and treatment as directed by CONVERTER OPERATOR. 11/01/2024 Family history of colon cancer (ICD-10 - Z80.0) Up-to-date with screening and will follow-up with GI as directed 03/11/2024 Pain in left knee (ICD-10 - M25.562) fu w/ neos for injections prn 11/01/2024 History of vertigo (ICD-10 - Z87.898) if recurs or lasts more than 2 days will snd to vestibular rehabPatient is aware and agreeable. 03/11/2024 Pain in right knee (ICD-10 - M25.561) 11/01/2024 High cholesterol (ICD-10 - E78.00) Continue current medication regimen. Lipid profile is good. Continue meds and heart healthy diet and will monitor fasting lipids. 11/01/2024 Medicare annual wellness visit, subsequent (ICD-10 - Z00.00) 11/01/2024 Other Health Risk Assessment reviewed with patient and scanned into chart. Plan Of Treatment Future Test Test Name Order Date LIPID [...] ONLY 11/11/2022 VITAMIN B12 11/11/2022 Urinalysis, Complete w/ME-[id number] [id number] 02/13/2025 Calcium, Ionized, Serum-092379 PTH, Intact-[id number] 02/13/2025 Hepatic Function Panel [id number] LP+Non-HDL Cholesterol-[id number] 02/13/2025 BMP8+eGFR-[id number] 02/13/2025 Next Appt Details Provider Name:AWA POST, 05/05/2025 10:00:00 AM, [address] [facility], [place], [address], Insurance Providers Payer Name Payer Address Payer Phone Subscriber Number Group Number Insured Name Patient Relationship to Insured Coverage Start Date Coverage End Date MEDICARE [facility] [employer] [address] [place] [address] [id number] SONY HURTADO Self - patient is the insured 4 [facility] MEDICARE SUPPLEMENT AL [address] [place] [address] [phone] [id number] SONY HURTADO Self - patient is the insured 8 Medical (General) History Medical History History ICD Code Allergies hyperlipidemia Headaches/Migraines Osteoarthritis Hypothyroidism Heart murmur osteoporosis - BMD breast & wellness 02/2021 - t-score spine -4.1, femoral neck -2.6, total hip -1.7 - no fracture high normal/mildly high calcium w/ high PTH vitamin D insufficiency Surgical History Surgery Date(Month/Year) Cataracts Mole Removal Left shoulder rotator cuff surgery /bone spur 01/14/2022 Hospitalization History Reason Date(Month/Year) Covid/high blood pressure 08/2021
== END 2025-03-03 09:00 | disposition home or self-care (01) ==
LOC: HO.HMGAL 08:52
PROVIDERS: PCP Internal Medicine; Visit Provider Registered Nurse Emergency
DX: J30.89 Other allergic rhinitis (principal)
CPT/HCPCS: 95117; 95165